=== PATIENT | female | born 1990 | race African-American/Black ===

== ENCOUNTER 2022-02-22 02:37 | Emergency (ER) | payer OTHER ==
[~2022-02-22] VITALS: Ht 162.6 cm; Wt 62.7 kg
[2022-02-22] MEDS ORDERED: ACETAMINOPHEN/CODEINE 300-30 MG TABLET PO ONE (05:00)
[2022-02-22] MEDS ORDERED: IBUPROFEN 600 MG TABLET PO ONE (05:00)
[2022-02-22 05:37] VITALS: BP 124/81
[2022-02-22] MEDS ORDERED: IBUP-1554 PO (05:53)
[2022-02-22] MEDS ORDERED: ACET-2080 PO (05:53)
== END 2022-02-22 06:21 | disposition home or self-care (01) ==
LOC: EMS 02:42
DX: S93.401A Sprain of unspecified ligament of right ankle, initial encounter (principal); X50.1XXA Overexertion from prolonged static or awkward postures, initial encounter; Y93.89 Activity, other specified; Y92.89 Other specified places as the place of occurrence of the external cause; Y99.8 Other external cause status; Z86.16 Personal history of COVID-19
CPT/HCPCS: 29515; 29540; 99283

== ENCOUNTER 2022-06-21 15:52 | Emergency (ER) | payer OTHER ==
[~2022-06-21] VITALS: Ht 160 cm; Wt 61.4 kg
[~2022-06-21 15:52] MED LIST: ACET-2080 PO; IBUP-1554 PO
[2022-06-21] MEDS ORDERED: ACETAMINOPHEN 325 MG TABLET PO ONE (17:00)
[2022-06-21] MEDS ORDERED: IBUPROFEN 400 MG TABLET PO ONE (17:00)
[2022-06-21 19:00] VITALS: BP 116/75
== END 2022-06-21 19:38 | disposition home or self-care (01) ==
LOC: EMS 15:52 → EEVIPCON 15:52 → EMS 19:38
DX: S93.401A Sprain of unspecified ligament of right ankle, initial encounter (principal); M79.671 Pain in right foot; X50.1XXA Overexertion from prolonged static or awkward postures, initial encounter; Y93.01 Activity, walking, marching and hiking; Y92.89 Other specified places as the place of occurrence of the external cause; Y99.8 Other external cause status
CPT/HCPCS: 99284; 73610-TC; 73630-TC; Z7502; Z7610